=== PATIENT | male | born 1990 | race Caucasian/White ===

== ENCOUNTER 2020-01-07 14:31 | Emergency (ER) | payer SELFPAY ==
[~2020-01-07] VITALS: Ht 180.3 cm; Wt 90.9 kg
[2020-01-07] MEDS ORDERED: fentaNYL PF VIAL 100 MCG/2 ML VIAL IVP ONE (15:30)
[2020-01-07] MEDS ORDERED: IV NORMAL SALINE 1000ML BAG 1,000 ML IV ONE (15:30)
--- NOTE | 2020-01-07 15:34 | PHYS DOC ---
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 He states last time he had a seizure was about 3-4 months ago. States he takes is Depakote every day twice a day at 1000 mg. He states that this happened around 1300 today. Patient states he hit his left head as he is having headache and his right shoulder is hurting. Review of Systems Review of Systems HENT: Denies nasal congestion or sore throat. Bit right tip of tongue. [] Musculoskeletal: Denies back pain. Right shoulder joint pain [] Integument: Abrasion to left forearm, Denies rash or skin lesions [] Neurologic: headache, siezure, denies focal weakness or sensory changes [] Endocrine: Denies polyuria or polydipsia [] All other systems were reviewed and found to be within normal limits, except as documented in this note. Current Medications Current Medications Current Medications Medications (Trade) Dose Ordered Sig/Lulu Start Time Stop Time Status Last Admin Dose Admin Fentanyl Citrate (Fentanyl 2ml Vial) 50 mcg 1X ONCE 01/07/20 15:30 01/07/20 15:31 DC 01/07/20 15:58 50 MCG Sodium Chloride 1,000 ml @ 1,000 mls/hr 1X ONCE 01/07/20 15:30 01/07/20 16:29 DC 01/07/20 15:30 1,000 MLS/HR Allergies Allergies Allergies Coded Allergies Type Severity Reaction Last Updated Verified No Known Drug Allergies 01/07/20 No Physical Exam Physical Exam Constitutional: Well developed, well nourished, no acute distress, non-toxic appearance. [] HENT: Normocephalic, atraumatic, bilateral external ears normal, oropharynx moist, no oral exudates, nose normal. Puncture of tip of right tongue. [] Eyes: PERRLA, EOMI, conjunctiva normal, no discharge. [] Neck: Normal range of motion, no tenderness, supple, no stridor. [] Cardiovascular:Heart rate regular rhythm, no murmur [] Lungs & Thorax: Bilateral breath sounds clear to auscultation [] Abdomen: Bowel sounds normal, soft, no tenderness, no masses, no pulsatile masses. [] Skin: Abrasion to left forearm up to mid humerus. Warm, dry, no erythema, no rash. [] Back: No tenderness, no CVA tenderness. [] Extremities: Right shoulder tenderness, no cyanosis, no clubbing, right shoulder ROM limited intact, no edema. [] Neurologic: Alert and oriented X 3, normal motor function, normal sensory function, no focal deficits noted. [] Psychologic: Affect normal, judgement normal, mood normal. [] Current Patient Data Vital Signs Vital Signs Date Time Temp Pulse Resp B/P (MAP) Pulse Ox O2 Delivery O2 Flow Rate FiO2 01/07/20 15:58 20 01/07/20 14:49 97.9 106 144/66 (92) 95 Room Air 97.9 Lab Values Laboratory Tests Test 01/07/20 14:37 01/07/20 15:59 White Blood Count 6.0 x10^3/uL (4.0-11.0) Red Blood Count 5.47 x10^6/uL (4.30-5.70) Hemoglobin 16.5 g/dL (13.0-17.5) Hematocrit 47.9 % (39.0-53.0) Mean Corpuscular Volume 88 fL (79-100) Mean Corpuscular Hemoglobin 30 pg (25-35) Mean Corpuscular Hemoglobin Concent 34 g/dL (31-37) Red Cell Distribution Width 13.5 % (11.5-14.5) Platelet Count 235 x10^3/uL (140-400) Neutrophils (%) (Auto) 62 % (31-73) Lymphocytes (%) (Auto) 28 % (24-48) Monocytes (%) (Auto) 6 % (0-9) Eosinophils (%) (Auto) 3 % (0-3) Basophils (%) (Auto) 1 % (0-3) Neutrophils # (Auto) 3.7 x10^3/uL (1.8-7.7) Lymphocytes # (Auto) 1.7 x10^3/uL (1.0-4.8) Monocytes # (Auto) 0.4 x10^3/uL (0.0-1.1) Eosinophils # (Auto) 0.2 x10^3/uL (0.0-0.7) Basophils # (Auto) 0.0 x10^3/uL (0.0-0.2) Prothrombin Time 12.8 SEC (11.7-14.0) Prothrombin Time INR 1.0 (0.8-1.1) Sodium Level 138 mmol/L (136-145) Potassium Level 4.0 mmol/L (3.5-5.1) Chloride Level 103 mmol/L (98-107) Carbon Dioxide Level 21 mmol/L (21-32) Anion Gap 14 (6-14) Blood Urea Nitrogen 12 mg/dL (8-26) Creatinine 1.2 mg/dL (0.7-1.3) Estimated GFR (Cockcroft-Gault) 71.6 BUN/Creatinine Ratio 10 (6-20) Glucose Level 85 mg/dL (70-99) Calcium Level 9.0 mg/dL (8.5-10.1) Total Bilirubin 0.4 mg/dL (0.2-1.0) Aspartate Amino Transferase (AST) 22 U/L (15-37) Alanine Aminotransferase (ALT) 18 U/L (16-63) Alkaline Phosphatase 59 U/L (46-116) Total Protein 7.5 g/dL (6.4-8.2) Albumin 3.9 g/dL (3.4-5.0) Albumin/Globulin Ratio 1.1 (1.0-1.7) Valproic Acid Level 57 mcg/mL (50-100) Valproic Acid Last Dose Date 01/07/20 Valproic Acid Last Dose Time 0600 Lactic Acid Level 1.1 mmol/L (0.4-2.0) Laboratory Tests 01/07/20 14:37 Laboratory Tests 01/07/20 14:37 EKG EKG Sinus rhythm and no STEMI.[] Interpretation Time: [address] Bar Radiology/Procedures Radiology/Procedures [] Impressions: [facility] [address] [place] [address] IMAGING REPORT Signed PATIENT: LIZ ANNE ACCOUNT: [id number] : 1990 LOCATION: ER AGE: 29 SEX: M EXAM STATUS: REG ER ORD. PHYSICIAN: GRACE NEGRO APRN REASON: fall. right shoulder pain PROCEDURE: SHOULDER 2+V RIGHT Two-view left forearm HISTORY: Pain status post fall AP lateral views Visualized osseous structures appear normal. IMPRESSION: No acute findings. End impression Three views right shoulder History: pain Internally and externally rotated AP of shoulder obtained, as well as "Y" view. The glenohumeral relationship is normal. The visualized osseous structures appear normal. Impression: No acute findings. end impression Electronically signed by: Sue Muniz III, MD (01/07/2020 4:25 PM) [id number] DICTATED and SIGNED BY: SUE MUNIZ III, MD DATE: 01/07/20 9642 Course & Med Decision Making Course & Med Decision Making Pertinent Labs and Imaging studies reviewed. (See chart for details) Patient has a superficial abrasion that goes from mid dorsal forearm up to mid humerus. Patient complains of left forearm pain. There is no deformity in any joints or swelling. He does have limited range of motion in the right shoulder due to pain. Patient states that many times before he has a seizure he will have dizziness or lightheadedness that will come and go away and then he will have a seizure but there are also days when this happens and he does not have a seizure. He states that he did feel this way earlier but it went away. Patient rates his pain a 9 out of 10. Alert and oriented. Speaks in full clear senses. Answers my questions appropriately. Patient states he does not remember the seizure had pain. He did bite his tongue having tooth whitaker on his tip of his right side of his tongue. There is no laceration on his tongue only puncture mar ks. No damage to his teeth. He denies incontinence. Patient denies any visual changes, chest pain, shortness of air, back pain, neck pain, abdominal pain, nausea, vomiting, numbness or tingling. He has full range of motion of his neck and there is no tenderness to his neck or his back. No bruising or deformity to any of his extremities. No swelling to any of his extremities. Lungs are clear to auscultation all lobes. Vital signs are within normal limits. Skin pink warm and dry. Depokote level is 57 which is therapeutic. Patient is back to baseline. He is neurologically intact. Blood work unremarkable. CT head and x-rays show no acute findings. He has no comorbidities. Patient discharged home and to follow-up with his primary care physician as soon as possible. [] Dragon Disclaimer Dragon Disclaimer This electronic medical record was generated, in whole or in part, using a voice recognition dictation system. Departure Departure Impression: Primary Impression: Seizure Disposition: HOME, SELF-CARE Condition: STABLE Referrals: NO PCP (PCP) Patient Instructions: Seizure, Adult Additional Instructions: Follow-up with her primary care provider. Continue taking her medications as prescribed. Drink plenty of fluids. GRACE NEGRO APRN Jan 07, 2020 15:34
--- NOTE | 2020-01-07 15:39 | EKG ---
[facility] [address] [place] [address] Test Date: 2020-01-07 Test Time: 15:35:45 Pat Name: LIZ ANNE Department: Room: Gender: M Hospital Internship: : 1990 Requested By: GRACE NEGRO Order Number: [id number] Reading MD: Measurements Intervals [place] Rate: 75 P: 42 AR: 130 QRS: 37 QRSD: 72 T: 24 QT: 330 QTc: 371 Interpretive Statements SINUS RHYTHM QRS(T) CONTOUR ABNORMALITY CONSISTENT WITH ANTEROSEPTAL MYOCARDIAL DAMAGE ABNORMAL ECG RI6.01 No previous ECG available for comparison
[2020-01-07 15:42] LABS: BASO % 1 % (0-3); EOS # 0.2 x10^3/uL (0.0-0.7); EOS % 3 % (0-3); HEMATOCRIT 47.9 % (39.0-53.0); HEMOGLOBIN 16.5 g/dL (13.0-17.5); LYMPH # 1.7 x10^3/uL (1.0-4.8); LYMPH % 28 % (24-48); MEAN CORPUSCULAR HEMOGLOBIN 30 pg (25-35); MEAN CORPUSCULAR HGB CONC 34 g/dL (31-37); MEAN CORPUSCULAR VOLUME 88 fL (79-100); MONO # 0.4 x10^3/uL (0.0-1.1); MONO % 6 % (0-9); NEUT # 3.7 x10^3/uL (1.8-7.7); NEUT % 62 % (31-73); PLATELET COUNT 235 x10^3/uL (140-400); RED BLOOD COUNT 5.47 x10^6/uL (4.30-5.70); RED CELL DISTRIBUTION WIDTH 13.5 % (11.5-14.5)
[2020-01-07 15:51] LABS: PROTHROMBIN TIME PATIENT 12.8 SEC (11.7-14.0)
[2020-01-07 15:56] LABS: ANION GAP 14 (6-14); BLOOD UREA NITROGEN 12 mg/dL (8-26); BUN/CREATININE RATIO 10 (6-20); CARBON DIOXIDE 21 mmol/L (21-32); CHLORIDE 103 mmol/L (98-107); CREATININE 1.2 mg/dL (0.7-1.3); GFR 71.6; GLUCOSE 85 mg/dL (70-99); SODIUM 138 mmol/L (136-145)
[2020-01-07 16:03] LABS: ALBUMIN 3.9 g/dL (3.4-5.0); ALBUMIN/GLOBULIN RATIO 1.1 (1.0-1.7); ALK PHOS 59 U/L (46-116); ALT (SGPT) 18 U/L (16-63); AST (SGOT) 22 U/L (15-37); TOTAL BILIRUBIN 0.4 mg/dL (0.2-1.0); TOTAL PROTEIN 7.5 g/dL (6.4-8.2)
[2020-01-07 16:05] LABS: VAL ACID 57 mcg/mL (50-100)
--- NOTE | 2020-01-07 16:25 | RAD ---
CT scan of the head without contrast 01/07/2020 Clinical History: Seizure with fall. Head injury. Technique: Unenhanced, contiguous, 5 mm axial sections were obtained through the head. One or more of the following individualized dose reduction techniques were utilized for this study: 1. Automated exposure control. 2. Adjustment of the mA and/or kV according to patient size. 3. Use of iterative reconstruction technique. Findings: The ventricles and sulci are within normal limits in size and configuration. No acute parenchymal abnormality is seen. No extra-axial fluid collection is noted. No skull fracture is seen. Impression: No acute intracranial abnormality is seen. CT scan of the cervical spine without contrast 01/07/2020 Clinical history: Fall with neck injury. Technique: Unenhanced, contiguous, 0.625 mm axial sections were obtained through the cervical spine. Axial, coronal and sagittal reconstructed images were obtained. One or more of the following individualized dose reduction techniques were utilized for this study: 1. Automated exposure control. 2. Adjustment of the mA and/or kV according to patient size. 3. Use of iterative reconstruction technique. Findings: Sagittal and coronal reconstructed images demonstrate straightening of the normal cervical lordosis. No fracture or subluxation of the cervical vertebrae is seen. No significant degenerative changes are noted. Impression: No fracture or subluxation of the cervical vertebra is identified. Electronically signed by: Chase Cha MD (01/07/2020 4:23 PM) [id number]
--- NOTE | 2020-01-07 16:28 | RAD ---
Two-view left forearm HISTORY: Pain status post fall AP lateral views Visualized osseous structures appear normal. IMPRESSION: No acute findings. End impression Three views right shoulder History: pain Internally and externally rotated AP of shoulder obtained, as well as "Y" view. The glenohumeral relationship is normal. The visualized osseous structures appear normal. Impression: No acute findings. end impression Electronically signed by: Silver Cabrera III, MD (01/07/2020 4:25 PM) [id number]
[2020-01-07 17:19] VITALS: BP 121/63
== END 2020-01-07 17:50 | disposition home or self-care (01) ==
LOC: ER 14:31
DX: S50.812A Abrasion of left forearm, initial encounter (principal); R56.9 Unspecified convulsions; R51 Headache; M25.511 Pain in right shoulder; R42 Dizziness and giddiness; F17.200 Nicotine dependence, unspecified, uncomplicated; W22.8XXA Striking against or struck by other objects, initial encounter; Y93.89 Activity, other specified; Y92.89 Other specified places as the place of occurrence of the external cause; Y99.0 Civilian activity done for income or pay
CPT/HCPCS: 36415; 70450; 72125; 73030; 73090; 80053; 80164; 83605; 85025; 85610; 93005; 96361; 96374; 99285; J3010; J7030